=== PATIENT | female | born 1990 | race Caucasian/White ===

== ENCOUNTER 2020-02-17 19:19 | Emergency (ER) | payer OTHER ==
[~2020-02-17] VITALS: Ht 167.6 cm; Wt 80.0 kg
[2020-02-17 19:38] VITALS: BP 132/70
[2020-02-17] MEDS ORDERED: KETOROLAC 15 MG/ML VIAL. IVP ONE (20:00)
[2020-02-17] MEDS ORDERED: IV NORMAL SALINE 1,000ML 1,000 ML IV ONE (20:00)
[2020-02-17] MEDS ORDERED: IOHEXOL 300 MG/ML 75 ML VIAL. IV ONE (20:15)
--- NOTE | 2020-02-17 20:25 | PHYS DOC ---
Past History Past Medical History: No Pertinent History Past Surgical History: Alcohol Use: Occasionally General Adult EDM: Chief Complaint: ABDOMINAL PAIN HPI: HPI: Patient is a 30 year old F who presents with abdominal pain that began around 5pm tonight. She localizes it to the right lower quadrant and describes the pain as constant and sharp. She rates it a 8-9/10 and states the pain does not radiate anywhere. She is also complaining of a sharp rectal pain that she often feels while on her menstrual cycle. She states it feels like she needs to go to the bathroom, but she tries to go she feels no relief. She denies n/v/d. She denies dysuria, frequency, and mat blood in her urine. Review of Systems: Review of Systems: Constitutional: Denies fever or chills Eyes: Denies redness or eye pain HENT: Denies nasal congestion or sore throat Respiratory: Denies cough or shortness of breath Cardiovascular: Denies chest pain or palpitations GI: Denies nausea or vomiting. : Denies dysuria or hematuria Musculoskeletal: Denies back pain or joint pain Integument: Denies rash or skin lesions Neurologic: Denies headache, focal weakness or sensory changes Complete systems were reviewed and found to be within normal limits, except as documented in this note. Current Medications: Current Meds: Current Medications Medications (Trade) Dose Ordered Sig/Saúl Start Time Stop Time Status Last Admin Dose Admin Iohexol (Omnipaque 300 Mg/ml) 75 ml 1X ONCE 02/17/20 20:15 02/17/20 20:16 DC Ketorolac Tromethamine (Toradol 15mg Vial) 15 mg 1X ONCE 02/17/20 20:00 02/17/20 20:06 DC Sodium Chloride 1,000 ml @ 1,000 mls/hr 1X ONCE 02/17/20 20:00 02/17/20 20:59 Allergies: Allergies: Allergies Coded Allergies Type Severity Reaction Last Updated Verified No Known Drug Allergies 02/17/20 No Physical Exam: PE: Constitutional: Well developed, well nourished. HENT: Normocephalic, atraumatic Eyes: Conjunctiva normal, no discharge Neck: Normal range of motion, supple Lungs & Thorax: No respiratory distress, equal chest rise and fall Abdomen: Soft, tender to palpation in the left lower quadrant. No rebound tenderness. Positive psoas sign. Skin: Warm, dry, no erythema, no rash Back: No tenderness, no CVA tenderness Extremities: No tenderness, no edema Neurologic: Alert and oriented X 3, no focal deficits noted Psychologic: Affect normal, judgment normal Current Patient Data: Vital Signs: Vital Signs Date Time Temp Pulse Resp B/P (MAP) Pulse Ox O2 Delivery O2 Flow Rate FiO2 02/17/20 19:38 97.6 80 16 132/70 (90) 98 Room Air EKG: EKG: [] Radiology/Procedures: Radiology/Procedures: PROCEDURE: CT ABDOMEN PELVIS WO CONTRAST EXAM: CT ABDOMEN/PELVIS WITHOUT CONTRAST. HISTORY: Lower abdominal pain. TECHNIQUE: Computed tomography of the abdomen and pelvis was performed without intravenous contrast. One or more of the following individualized dose reduction techniques were utilized for this examination: 1. Automated exposure control. 2. Adjustment of the mA and/or kV according to patient size. 3. Use of iterative reconstruction technique. COMPARISON: None. FINDINGS: Lung windows through the visualized portions of the bases reveal no abnormality. Bone windows reveal no suspicious lesions. The liver, spleen, pancreas, adrenal glands, gallbladder and kidneys are unremarkable without contrast. There are no pathologically enlarged lymph nodes. There are no renal or ureteral calculi. There is minimal stranding along the sigmoid colon versus the right adnexal, which are adjacent. There is no drainable collection. The appendix is not inflamed. There is no small bowel obstruction. IMPRESSION: 1. Correlate for mild sigmoid diverticulitis, versus a small amount of fluid arising from the right ovarian follicle. Electronically signed by: Lizbeth Cabral MD (02/17/2020 9:50 PM) [facility] Course & Med Decision Making: Course & Med Decision Making 30 yo F with right lower quadrant abdominal pain that began today at 5pm. Denies n/v/d. Pain controlled with [address] of abdomen and pelvis showed potential sigmoid diverticulitis or fluid from the R ovary. Pertinent Labs and Imaging studies reviewed. (See chart for details) [] Dragon Disclaimer: Dragon Disclaimer: This electronic medical record was generated, in whole or in part, using a voice recognition dictation system. Departure Departure: Impression: Primary Impression: Diverticulitis Disposition: HOME/RESIDENCE PRIOR TO ADM Condition: STABLE Referrals: PCP,NO (PCP) PROPECK,OLY S MD Patient Instructions: Diverticulitis, [id number] Scripts Tramadol Hcl (TRAMADOL HCL) 50 Mg Tablet 50 MG PO PRN Q6HRS PRN for PAIN, #14 TAB Take each tablet with one (1) regular strength Tylenol 325mg Prov: JERICHO DUNCAN DO 02/17/20 Metronidazole (FLAGYL) 500 Mg Tablet 1 TAB PO TID for Diverticulitis, #21 TAB Prov: JERICHO DUNCAN DO 02/17/20 Ciprofloxacin Hcl (CIPRO) 500 Mg Tablet 1 TAB PO BID for Diverticulitis, #14 TAB Prov: JERICHO DUNCAN DO 02/17/20 Justification of Admission: Justification of Admission: Justification of Admission Dx: N/A JERICHO DUNCAN DO Feb 17, 2020 20:25
[2020-02-17 20:37] LABS: BASO # 0.1 x10^3/uL (0.0-0.2); BASO % 1 % (0-3); EOS # 0.1 x10^3/uL (0.0-0.7); EOS % 1 % (0-3); HEMATOCRIT 34.1 % (36.0-47.0); HEMOGLOBIN 11.3 g/dL (12.0-15.5); LYMPH # 2.5 x10^3/uL (1.0-4.8); LYMPH % 29 % (24-48); MEAN CORPUSCULAR HEMOGLOBIN 28 pg (25-35); MEAN CORPUSCULAR HGB CONC 33 g/dL (31-37); MEAN CORPUSCULAR VOLUME 86 fL (79-100); MONO # 0.6 x10^3/uL (0.0-1.1); MONO % 7 % (0-9); NEUT # 5.4 x10^3uL (1.8-7.7); NEUT % 63 % (31-73); PLATELET COUNT 410 x10^3/uL (140-400); RED BLOOD COUNT 3.97 x10^6/uL (3.50-5.40); RED CELL DISTRIBUTION WIDTH 14.8 % (11.5-14.5); WHITE BLOOD COUNT 8.6 x10^3/uL (4.0-11.0)
[2020-02-17 20:44] LABS: CALCIUM 8.8 mg/dL (8.5-10.1); CREATININE 0.7 mg/dL (0.6-1.0); GFR 98.3; POTASSIUM 3.8 mmol/L (3.5-5.1)
[2020-02-17 20:50] LABS: ALBUMIN 3.4 g/dL (3.4-5.0); MAGNESIUM 1.9 mg/dL (1.8-2.4); TOTAL BILIRUBIN 0.2 mg/dL (0.2-1.0); TOTAL PROTEIN 6.9 g/dL (6.4-8.2)
--- NOTE | 2020-02-17 21:53 | RAD ---
EXAM: CT ABDOMEN/PELVIS WITHOUT CONTRAST. HISTORY: Lower abdominal pain. TECHNIQUE: Computed tomography of the abdomen and pelvis was performed without intravenous contrast. One or more of the following individualized dose reduction techniques were utilized for this examination: 1. Automated exposure control. 2. Adjustment of the mA and/or kV according to patient size. 3. Use of iterative reconstruction technique. COMPARISON: None. FINDINGS: Lung windows through the visualized portions of the bases reveal no abnormality. Bone windows reveal no suspicious lesions. The liver, spleen, pancreas, adrenal glands, gallbladder and kidneys are unremarkable without contrast. There are no pathologically enlarged lymph nodes. There are no renal or ureteral calculi. There is minimal stranding along the sigmoid colon versus the right adnexal, which are adjacent. There is no drainable collection. The appendix is not inflamed. There is no small bowel obstruction. IMPRESSION: 1. Correlate for mild sigmoid diverticulitis, versus a small amount of fluid arising from the right ovarian follicle. Electronically signed by: Lizbeth Cabral MD (02/17/2020 9:50 PM) [facility]
[2020-02-17 22:10] LABS: BILIRUBIN,URINE NEG (NEG); CLARITY,URINE HAZY; COLOR,URINE PINK; GLUCOSE,URINE NEG (NEG)
[2020-02-17 22:11] LABS: NITRITE,URINE NEG (NEG); UROBILINOGEN,URINE 0.2 mg/dL (0.2 mg/dL)
[2020-02-17 22:13] LABS: BACTERIA,URINE FEW /HPF (0-FEW); RBC,URINE >40 /HPF (0-2)
[2020-02-17] MEDS ORDERED: metroNIDAZOLE 500 MG TABLET PO ONE (22:30)
[2020-02-17] MEDS ORDERED: CIPROFLOXACIN HCL 500 MG TABLET PO ONE (22:30)
[2020-02-17] MEDS ORDERED: METR500T PO (22:36)
[2020-02-17] MEDS ORDERED: TRAM50TA PO (22:36)
[2020-02-17] MEDS ORDERED: CIPR500T94 PO (22:36)
[2020-02-17] MEDS ORDERED: traMADol 50 MG TABLET PO ONE (22:45)
== END 2020-02-17 23:13 | disposition home or self-care (01) ==
LOC: ER 19:19
DX: K57.32 Diverticulitis of large intestine without perforation or abscess without bleeding (principal); Z98.890 Other specified postprocedural states
CPT/HCPCS: 36415; 74176; 80053; 81001; 81025; 83690; 83735; 85025; 96361; 96374; 99284; J1885; J7030